=== PATIENT | female | born 1950 | race American Indian/Alaskan Native ===

== ENCOUNTER 2017-06-05 17:16 | Inpatient (IN) | payer BC, OTHER ==
[~2017-06-05] VITALS: Ht 154.9 cm; Wt 83.9 kg
[~2017-06-05 17:16] MED LIST: ALLEGRA ALLERGY60 MG PO; LEVOTHYROXINE75 MCG PO; NAPROXEN500 MG PO; NORCO 5-325 TA1 EACH PO; ZOLOFT25 MG PO
[2017-06-05] MEDS ORDERED: ASPIR 8181 MG PO (17:41)
--- NOTE | 2017-06-06 00:20 | NUR ---
06/06/17 0020 Ana M Masters 0004 PT ARRIVED ON 8L VIA MASK, RESP EVEN AND UNLABORED. REPORT FROM TRANSCRIPTER. 0015 PT OPENED EYES, REORIENTED TO PACU. 0019 PT REPORTING PAIN 3/10 AND NOT TOLERABLE AT THIS TIME.
--- NOTE | 2017-06-06 01:00 | NUR ---
PT ADMITTED TO ROOM 123 S/P LAP APPY-PERFORATED, APPENDICITIS OCCULT; CIRRHOSIS LIVER WHICH IS UNKNOWN TO PT. LABS ORDERED THIS AM INCLUDE HEPATITIS PANELS. PT CURRENTLY DOES NOT HAVE A KNOWN REASON FOR THE LIVER DISEASE. A BIOSPY WAS DONE. PT HAS 2 LAP SITES MID ABD AND UPPER MID ABD, BOTH WITH STERI STRIPS; JOSE RLQ WITH SANGUINEOUS DRAINAGE WELL DRESSING HAS SAME, REEL MAN STATES THAT IT HASN'T WORSENED POST SURGERY. PT IS ALERT AND ORIENTATED, STATES PRESSURE PAIN NEAR A 2. MONAE WITH YELLOW URINE.
--- NOTE | 2017-06-06 02:49 | NUR ---
PT CURRENTLY SLEEPING WITH SNORING. PULSE OX READING SATS AT 95 ON RA; AT 209 MED WITH 1 MG MORPHINE FOR A 3/10 PAIN-PRESSURE. PT WANTED TO HAVE A DRINK OF POP, DENIES NAUSEA. COUPLE DRINKS POP GIVEN. SAYS PERCOCET (OXYCODONE) GIVES HER WEIRD NIGHT MORRISON, SAYS SHE DOESN'T WANT TO TAKE THAT. WILL PASS INFORMATION ON TO RN DAYSHIFT. PT HAS HOARSE VOICE, SAYS FROM SURGERY. ENCOURAGED PT TO TAKE DEEP BREATHS WHICH SHE DID, BUT HAS BEEN MORE SHALLOW BREATHING. HR IN THE 50'S, RESP 16.
--- NOTE | 2017-06-06 03:11 | NUR ---
pt woke with vitals. asked about pain, she said what pain. note temp is 100.8; I/S done, says she feels ok, mostly sleeping. voice is less hoarse, able to hear pt talk louder. will med with tylenol if temp continues.
--- NOTE | 2017-06-06 04:16 | NUR ---
TEMP 100.4 MED WITH 650 MG TYLENOL. JOSE WITH 80 OUT AT THIS TIME, MONAE WITH 350, URINE WHICH IS ACTUALLY DARKER VS YELLOW URINE. PT DENIES PAIN, IS DRINKING LEMON MOD[place], EATING A CRACKER AND RED JELLO. NO NAUSEA. STAB WOUNDS UNCHANGED FROM ADMISSION IS THE JOSE DRESSING. NO NEW DRAINAGE PRESENT. IV CONTINUES, O2 SATS 92 ON RA AT THIS TIME.
--- NOTE | 2017-06-06 05:16 | NUR ---
PT WITH EYES CLOSED, RESP EVEN AND UNLABORED PULSEOX WITH SATS 92, HR 71.
--- NOTE | 2017-06-06 06:12 | NUR ---
PT COMPLAIN OF 5/10 ABD PAIN NEAR 0555 , ABD UNCHANGED FROM ADMISSION, JOSE WITH 60 CC LESS BLOODY FLUID, MONAE WITH DARK ANDRES URINE. MED WITH 2 MG MORPHINE, NOTED SATS DROPPED TO 89-90 ON RA, SO NOW ON 2 LITER O2. HYPOACTIVE BOWEL SOUNDS, PT SAID I ATE THAT JELLO AND MY BELLY HURT LITTLE MORE. AT THIS TIME PT STATES PAIN IS NOW A 2-3/10.
--- NOTE | 2017-06-06 06:32 | NUR ---
PT ADMITTED FOR S/P LAP APPY-PERFORATED. LAP SITES WNL; BIOSPY LIVER DONE WELL. NO HISTORY OF LIVER DISEASE TO PT KNOWLEDGE BUT HAS CIRRHOSIS OF LIVER PER DR CARABALLO. HEP LABS COMPLETED. MED FOR PAIN X 2 THIS SHIFT, WITH FIRST TIME 1 MG MORPHINE AND LAST DOSE AT 0559 2 MG FOR 5/10 PAIN, WHICH SHE REPORTS IS NOW A 2-3/10. PULSE OX WITH SATS ABOVE 90 WITH 2 LITERS NON CHRONIC O2, ONCE THE 2 MG MORPHINE GIVEN, SATS DROPPED. MONAE WITH DARKER ANDRES URINE. ATE CRACKERS, DRANK SOME [place] POP, ATE JELLO WELL THIS SHIFT WITH NO NAUSEA. JOSE WITH 140 TOTAL OUT WITH LESSENING OF REDDNESS.
--- NOTE | 2017-06-06 08:05 | NUR ---
Patient up to chair with 2 person assist. Patient sitting up eating jello and drinking tea. warm banket given. no other needs a this time. call button in reach.
--- NOTE | 2017-06-06 08:07 | NUR ---
PATIENT STATES THAT SHE JUST GOT PAIN MEDICATION AND SHE IS IN LITTLE PAIN NOW.
--- NOTE | 2017-06-06 09:29 | NUR ---
PT SITTING UP IN CHAIR. AWAKE AND ALERT. AM MEDS ADMINISTERED. MOTRIN GIVEN FOR PAIN 07/11. SCDS IN PLACE. DENTURES ON BEDSIDE TABLE. PT ATE JELLO AND DENIED NAUSEA. URINE IN MONAE IS ANDRES. ORAL INTAKE ENCOURAGED. RT IN TO CHECK PT. TAKEN OFF O2 SAT 92-94% ON RA. EDUCATED ON IS USE. DENIES OTHER NEEDS AT THIS TIME. CALL LIGHT IN REACH.
--- NOTE | 2017-06-06 10:07 | NUR ---
PATIENT IN CHAIR RESTING. LINENS CHANGED. FRESH ICE WATER. ELECTRICAL LOGGING OPERATOR DISCUSSED MADE A PLAN WITH PATIENT ABOUT HER PAIN LEVEL. PAIN LEVEL A 4 OUT OF 10. RN STATED THAT PATIENT HAS JUST RECEIVED A PAIN MEDICATION. IN ABOUT AN HOUR PATIENT AND ELECTRICAL LOGGING OPERATOR WILL BE GOING FOR A SHORT WALK. PATIENTS SISTER IN ROOM. CALL BUTTON IN REACH. NO OTHER NEEDS AT THIS TIME.
[2017-06-06] MEDS ORDERED: SERTRALINE HCL100 MG PO (10:53)
[2017-06-06] MEDS ORDERED: OMEGA 3 1,0001 EACH PO (10:56)
[2017-06-06] MEDS ORDERED: LEVOTHYROXINE100 MCG PO (10:57)
[2017-06-06] MEDS ORDERED: EPIN0.3P IM (10:58)
[2017-06-06] MEDS ORDERED: EPINEPHRIN0.3 MG/0.3 IM (10:59)
[2017-06-06] MEDS ORDERED: FLONASE ALLERG9.9 ML NAS (11:00)
--- NOTE | 2017-06-06 11:01 | NUR ---
MED REC COMPLETE WITH YELLOWHAWK REFILL HISTORY.
--- NOTE | 2017-06-06 11:01 | NUR ---
PT WALKED IN [place] WITH NEEDLE LOOM OPERATOR HELPER'S. TOLERATED WELL. RATES PAIN 4\10 AFTER WALKING.
--- NOTE | 2017-06-06 11:02 | NUR ---
PATIENT AMBULATED IN HALLWAY WITH ONE PERSON ASSIST. PATIENT STATED THAT SHE WAS FEELING SHAKEY, WEAK AND TENSE. PATIENT BACK TO BED. PATIENT STATES THAT HER PAIN IS A 4 OUT OF 10. ICE PACK GIVEN TO PATIENT. CALL LIGHT IN REACH. NO OTHER NEEDS AT THIS TIME.RN NOTIFIED.
--- NOTE | 2017-06-06 11:30 | NUR ---
TALKED TO DR CARABALLO REGARDING MONAE, UO, AND POTASSIUM. CHANGED ORDER FOR LABS TO TODAY. LEAVE MONAE FOR NOW AND BOLUS 1L LR.
--- NOTE | 2017-06-06 11:55 | NUR ---
PT IS SITTING UP IN BED. ATE SOUP AND TOLERATED WELL. BOLUS RUNNING. PT STATES "I JUST FEEL SLEEPY" HAS COOL CLOTH ON FOREHEAD AND ICE PACK ON ABDOMEN. STATES PAIN IS INCREASING BUT STILL TOLERABLE. WOULD LIKE TO REST. CALL LIGHT IN REACH. DENIES OTHER NEEDS AT THIS TIME.
--- NOTE | 2017-06-06 12:20 | NUR ---
PATIENT RESTING IN BED WITH EYES CLOSED. PATIENT STATS THAT HER PAIN IS AT A 4. PATIENT STATES THAT THE ICE PACK HELPED DECREASE HER PAIN. CALL BUTTON IN REACH. TALKED TO PATIENT ABOUT GOING FOR A WALK LATER THIS AFTER NOON. NO OTHER NEEDS AT THIS TIME.
--- NOTE | 2017-06-06 12:55 | NUR ---
PT IS RESTING IN BED WITH CLOTH ON FOREHEAD AND EYES CLOSED. APPEARS COMFORTABLE. BOLUS COMPLETE. URINE IN MONAE IS STILL CONCENTRATED/ANDRES IN APPEARANCE.
--- NOTE | 2017-06-06 14:26 | NUR ---
PT IS RESTING IN BED WITH COOL CLOTH OVER EYES. SAYS PAIN GETS UP TO 6/10 AND IS SHARP. DECLINED MORPHINE, BUT WOULD LIKE MOTRIN WHEN NEXT DOSE IS AVAILABLE. ICE PACK ON ABDOMEN REPLACED. URINE OUTPUT INCREASED, BUT STILL ANDRES IN APPEARANCE. ENCOURAGED TO CONTINUE ORAL INTAKE. WOULD LIKE TO NAP AND THEN TAKE A WALK AFTER DOSE OF MOTRIN. WATER CUP REFILLED. CALL LIGHT IN REACH.
--- NOTE | 2017-06-06 15:32 | NUR ---
ADMINSITERED SCHED MEDS AND PAIN MEDICATION FOR 7\10. PT STATES HER ABDOM IS RADIATING ACROSS. SOFT NON TENDER. MONAE AND JOSE DRAINING WNL. URINE SOCIAL SERVICES COORDINATOR AFTER BOLUS. Marck PEARSON STARTED.
--- NOTE | 2017-06-06 16:49 | NUR ---
THIS LOT WORKER ASSISTED THE PATIENT WITH AMBULATION. PATIENT AMBLUTATED HALF A HALLWAY. PATIENT STATED THAT SHE FELT A LITTLE WEAK, BUT PAIN LEVEL WAS AT ABOUT A 3 OUT OF 10. PATIENT IS NOW IN HER CHAIR RESTING. PAIN LEVEL STILL A 3 OUT OF 10. CALL BUTTON WITHIN REACH. NO OTHER NEEDS AT THIS TIME.
--- NOTE | 2017-06-06 17:28 | NUR ---
PT UP IN CHAIR. COMPLAINED OF PAIN IN LOWER ABD/PELVIS. CHECKED MONAE PLACEMENT. DRAINING WELL. JOSE DRAINING WNL. 2ND K RIDER INFUSING. ICE PACK ACROSS ABDOMEN. PT HAS INCREASED ORAL INTAKE. USES IS APPROPRIATELY. DENIES OTHER NEEDS AT THIS TIME.
--- NOTE | 2017-06-06 18:34 | NUR ---
DR CARABALLO IN TO CHECK ON PT RECHECKING PT BP. DOWN TO 90/48. PT DIZZY WITH AMBULATION. TENDER IN LOWER QUADRANT. DENIES NAUSEA, EATING SMALL AMT OF DINNER. MONAE DRAINING PHOTO OPTICS TECHNICIAN YELLOW THAN EARLIER TODAY, QS.
--- NOTE | 2017-06-06 18:49 | NUR ---
PT HAD POOR URINE OUTPUT THROUGHOUT DAY. RECEIVED 1L OF LR BOLUS. URINE HAS BEEN ANDRES - YELLOW. MONAE STILL IN PLACE. CONTINUE TO ENCOURAGE ORAL INTAKE. APPETITE HAS BEEN MINIMAL. DENIES NAUSEA. WALKED IN THE HALLWAY X2. DENIES SOB, BUT HAS WEAK SHAKEY GAIT. HAD HYPOTENSION THIS EVENING. DR CARABALLO AWARE. PAIN WELL CONTROLLED WITH 1MG MORPHINE X1 AND MOTRIN. JOSE WNL. LAP SITES CDI. WEANED TO ROOM AIR THIS AM.
--- NOTE | 2017-06-06 20:48 | EKG ---
[facility] [address] [facility] [place], [place] [address] Signed Sinus bradycardia Inferior infarct , age undetermined Abnormal ECG No previous ECGs available Confirmed by ARMIDA RAMESH MD ([id number]) on 06/06/2017 8:48:41 PM Electronically Signed By: ARMIDA RAMESH MD 06/06/17 2048 PATIENT NAME: KIARA BAEZ Electrocardiogram DATE OF : 54 PHYSICIAN: ARMIDA RAMESH MD REPORT #: [id number] REPORT IS CONFIDENTIAL AND NOT TO BE RELEASED WITHOUT AUTHORIZATION
--- NOTE | 2017-06-06 22:30 | NUR ---
PT APPEARED TO BE SLEEPING, EYES WERE CLOSED, RR EVEN AND UNLABORED. LIGHTS AND TV OFF IN ROOM. PT WOKE EASILY TO VOICE. ALERT AND ORIENTED X4. RATES PAIN AT 7/10, GAVE PERCOCET FOR PAIN. DENIES NAUSEA. JOSE DRAINING SMALL AMOUNT OF SEROSANGUENOUS DRAINAGE. MONAE DRAINING FREELY. GAVE FRESH ICE WATER. PT HAS NO FURTHER NEEDS. CALL LIGHT IN REACH.
--- NOTE | 2017-06-07 01:06 | NUR ---
PT APPEARS TO BE SLEEPING. RR WNL AND UNLABORED. LIGHTS AND TV OFF IN ROOM. PT HAS BEEN SLEEPING MAJORITY OF NIGHT. UNEVENTFUL SO FAR.
--- NOTE | 2017-06-07 03:42 | NUR ---
PT AWAKE WHEN ENTERING ROOM. COMPLAINED OF 8/10 PAIN, GAVE PERCOCET 7.5MG PO FOR PAIN. PT HAS NO FURTHER COMPLAINTS. REPORTS PERCOCET FROM BEGINNING OF SHIFT COVERED HER PAIN WELL. SHE HAS BEEN SLEEPING MAJORITY OF SHIFT.
--- NOTE | 2017-06-07 05:40 | NUR ---
PT HAD UNEVENTFUL NIGHT. SLEPT MAJORITY OF SHIFT. PAIN WELL CONTROLLED WITH PO PAIN MEDICATION. MONAE PUTTING OUT QS AMOUNTS OF DARK ANDRES URINE. PT ALERT AND ORIENTED. USES CALL LIGHT APPROPRIATLY. JOSE PUTTING OUT SEROSANGENOUS. NO NAUSEA. D5LR @ 85.
--- NOTE | 2017-06-07 07:31 | NUR ---
REPORT RECIEVED FROM RAYMOND MORRISSEY. PT SLEEPING UNTIL AWOKEN FOR REPORT. MONAE DRAINING DARK ANDRES URINE AGAIN THIS MORNING. IVF AT 85.
--- NOTE | 2017-06-07 07:45 | NUR ---
PATIENT UP TO CHAIR WITH ONE PERSON ASSIST. BED BATH ASSIST. HANDS AND FACE WASHED. ORAL CARE DONE. CATH CARE DONE. FRESH ICE WATER AND ICE WATER GIVEN. WARM BLANKET GIVEN. PATIENT RATES HER PAIN A 3 OUT OF 10. PATIENT SET UP FOR BREAKFAST. CALL BUTTON IN REACHN. LINENS CHANGED. RN IN ROOM TO PASS MEDS. NO OTHER NEEDS AT THIS TIME.
--- NOTE | 2017-06-07 08:08 | NUR ---
AM MEDS ADMINISTERED. ASIM SELBY AND ASIM ROCHA IN TO CHANGE LINENS AND DO BUZZ CARE. PT SITTING UP IN CHAIR WITH LEGS ELEVATED. EATING BREAKFAST. CALL LIGHT IN REACH.
--- NOTE | 2017-06-07 09:45 | NUR ---
PT APPEARS TO BE SLEEPING WITH CLOTH OVER EYES. AROUSES EASILY. SL PER RASHMI ORDER. ENCOURAGED TO CONTINUE ORAL INTAKE. CERTIFIED WELLNESS PROGRAM COORDINATOR AJ IN TO DO AM VITALS. PT STATES THEY GOT TOAST CAUGHT IN THROAT DURING BREAKFAST AND HAD DIFFICULTY COUGHING IT UP. LUNGS SOUND CLEAR. PT SAYS PAIN IS INCREASING AND WOULD LIKE SOMETHING. ICE PACK ON ABD. DENIES OTHER NEEDS AT THIS TIME.
--- NOTE | 2017-06-07 10:09 | NUR ---
PATIENT RESTING IN BED WITH WASHCLOTH OVER EYES AND TALKING ON THE TELEPHONE. DISCONTINUED MONAE. FRESH ICE WATER. FRESH ICE PACK. CALL LIGHT WITHIN REACH. NO OTHER NEEDS AT THIS TIME.
--- NOTE | 2017-06-07 10:57 | NUR ---
PT REPORTED INCREASING PAIN OF 5/10. GIVEN 1 TAB OF NORCO. HAS BEEN RESTING IN BED. ENCOURAGED ORAL INTAKE. PT EXPRESSED INTEREST IN GOING ON A WALK AGAIN AFTER LUNCH. PT GOT UP TO BATHROOM. WEAK GAIT. USED WALL AND SINK FOR SUPPORT WHEN WALKING. URINE WAS ALARM INSTALLATION TECHNICIAN IN COLOR. PT BACK TO BED, AND DENIES FURTHER NEEDS. ICE PACK ON ABD. CALL LIGHT IN REACH.
--- NOTE | 2017-06-07 12:26 | NUR ---
PT WAS RESTING. EASILY AROUSED. RATES PAIN 2/10 AND STATES IT IS TOLERABLE. SITTING UP IN BED EATING LUNCH. ORAL INTAKE IMPROVED.
--- NOTE | 2017-06-07 12:45 | NUR ---
PATIENT STATES THAT HER PAIN LEVEL IS A 2 OUT OF 10. THIS PURCHASING MANAGER AND ANOTHER PURCHASING MANAGER REPOSITIONED PATIENT STRAIGHT UP IN BED TO EAT HER MEAL. PATIENT STATES THAT SHE WAS ABLE TO USE THE RESTROOM. CALL LIGHT WIHIN REACH. NO OTHER NEEDS AT THIS TIME.
--- NOTE | 2017-06-07 13:20 | NUR ---
PATIENT RESTING IN BED. PATIENTS FAMILY VISITING. PATIENT STATES THAT SINCE USING THE RESTROOM THE PRESSURE IN HER ABDOMEN HAS GONE DOWN. CALL BUTTON WITHIN REACH. NO OTHER NEEDS AT THIS TIME.
--- NOTE | 2017-06-07 13:45 | NUR ---
PATIENT UP TO BATHROOM WITH ONE PERSON ASSIT. PATIENT AMBULATED FULL HALLWAY X1 WITH THIS SOLAR SYSTEM INSTALLER. PATIENT STATES THAT HER PAIN ISN'T BAD YESTERDAY. PATIENT STATES THAT HER EYES ARE WHAT IS REALLY BOTHERING HER RIGHT NOW AND SHE HAS EYE DROPS THAT HAVE BEEN PERSCRIBED FOR HER TO SHOW THE DOCTOR. THIS SOLAR SYSTEM INSTALLER GAVE THE EYE DROPS TO CHARGE NURSE KULWINDER. CALL BUTTON IN REACH. NO OTHER NEEDS AT THIS TIME.
--- NOTE | 2017-06-07 14:00 | NUR ---
PT SITTING IN BED, TRYING TO EAT AN ARRAY OF DIFFERENT FOOD AND FRUIT. PT ADMITTED THAT NOT TOO INTERESTED, BUT TRYING. VERY PLEASANT DEMEANOR, FAMILY IN RM VISITING. PT SAID FIRST NIGHT VERY DIFFICULT, LAST NIGHT SLEPT WELL, AND NAPPING ON AND OFF TODAY. THANKED ME FOR COMING BY, EXTENDED A BLESSING. WILL FOLLOW NEEDED
--- NOTE | 2017-06-07 14:31 | NUR ---
PT SITTING UP IN CHAIR WITH LEGS ELEVATED. CHARGE NURSE IN FOR AFTERNOON ROUNDS. PT REPORTS DRY EYES AND LIKES TO KEEP COOL CLOTH OVER EYES. REPORTS PAIN IS MINIMAL AND PRESSURE HAS BEEN RELIEVED SINCE MONAE REMOVAL AND ACTIVITY. TOLERATED LUNCH WELL. HAS NO OTHER NEEDS AT THIS TIME. CALL LIGHT IN REACH.
[2017-06-07] MEDS ORDERED: SIMBRINZA 1%-0.28 ML OU (15:13)
--- NOTE | 2017-06-07 17:23 | NUR ---
PATIENT RESTING IN CHAIR. PATIENT STATES PAIN LEVEL IS A 1 OUT OF 10. PATIENT STATES THAT HER ICE WATER WAS JUST FILLED, SHE WAS ALREADY HELPED TO THE RESTROOM AND HER ICE BAG WAS JUST FILLED WELL. PATIENT STATES SHE FELL ASLEEP AND IT HELPED A LOT. CALL LIGHT WITHIN REACH. NO OTHER NEEDS AT THIS TIME.
--- NOTE | 2017-06-07 18:09 | NUR ---
PT SITTING UP IN CHAIR EATING DINNER. PAIN WELL CONTROLLED. UO QS.
--- NOTE | 2017-06-07 18:40 | NUR ---
PT HAD GOOD DAY. UP IN CHAIR AND WALKED SEVERTAL TIMES. MONAE REMOVED, UO QS AND DRAFTER LANDSCAPE COLOR. PAIN WELL CONTROLLED WITH MINIMAL PERCO. PLAN TO DC TOMORROW. JOSE DRAINING SCANT AMT.
--- NOTE | 2017-06-07 20:10 | NUR ---
In bed, coop with procedures. no c/o pain
--- NOTE | 2017-06-07 21:00 | NUR ---
HELPED PT GET INTO BED. TOOK OUT TEETH. FRESH ICE WATER
--- NOTE | 2017-06-07 22:15 | NUR ---
PT LAYING IN BED, AWAKE, WATCHING TV WHEN ENTERING ROOM. ALERT AND ORIENTED X4. PT RATES PAIN AT 3/10, GAVE PERCOCET 7.5MG FOR PAIN. GAVE FRESH ICE PACK AND FRESH ICE WATER. PT UP TO BATHROOM TO VOID, TOLERATING AMBULATING WELL. PT HAS NO FURTHER NEEDS AT THIS TIME. CALL LIGHT IN REACH.
--- NOTE | 2017-06-08 00:11 | NUR ---
PT APPEARS TO BE SLEEPING, RR WNL AND UNLABORED. LIGHTS AND TV OFF IN ROOM.
--- NOTE | 2017-06-08 02:07 | NUR ---
PT IS RESTING IN BED. CALL LIGHT IN REACH. WILL CHECK BACK ON LATER.
--- NOTE | 2017-06-08 07:18 | NUR ---
MARSHAL REPORT RECEIVED FROM YUNI. ASSUMING PATIENT AT THIS TIME WITH STUDENT NURSE. PATIENT AWAKE, ALERT AND ORIENTED. PATIENT WAS ASSISTED TO BATHROOM, THEN BACK TO BED. PATIENT REPORTS 2/10 ABD PAIN. NO NEED FOR PAIN MED AT THIS TIME. CALL LIGHT IN REACH.
--- NOTE | 2017-06-08 07:59 | NUR ---
Pt up in recliner eating breakfast. Complains of 7/10 headache. Gave pt warm washcloth for eyes, ice water and ice pack. Gave PRN ibuprofen for JADE. Call light within reach. Will continue to monitor.
--- NOTE | 2017-06-08 09:52 | NUR ---
IN TO ROOM WITH STUDENT NURSE TO ASSESS PATIENT. PATIENT REPORTED RELIEF OF HER HEADACHE. SHIFT ASSESSMENT COMPLETED. ACTIVE BOWEL TONES IN ALL 4 QUADRANTS. LUNGS CLEAR BUT FINE CRACKLE AUSCULTATED IN THE BASES. IV SITE PATENT. NO EDEMA NOTED. ALL 3 LAP SITES WNL AND JOSE DRAIN IN PLACE WITH MINIMAL SEROSANGUINOUS FLUID. PATIENT RATED HER ABD PAIN 2/10. PATIENT RESTING IN THE CHAIR AT THIS TIME.
--- NOTE | 2017-06-08 10:33 | NUR ---
1000 VS ACQUIRED. BP LOW. PT RESTING IN CHAIR. C/O OF ABDOMINAL TENDERNESS. JOSE DRAIN WITH SMALL AMOUNT SEROSANGUINOUS DRAINAGE. BOWEL TONES ACTIVE IN ALL 4 QUADRANTS. ABD SOFT ON PALPATION. INFORMED PRIMARY NURSE OF LOW BP. CALL LIGHT IN REACH.
--- NOTE | 2017-06-08 11:26 | NUR ---
TOILETING OFFERED. PT AMBULATED WITH WALKER TO BATHROOM WITH STANDBY ASSIST. PT INDEPENDENT WITH TOILETING. AMBULATED BACK TO CHAIR. FAMILY NOW AT BEDSIDE AND PT IS EATING LUNCH. CALL LIGHT IN REACH.
--- NOTE | 2017-06-08 11:37 | HP ---
[facility] [address] [facility] [place], [place] [address] Signed ADMISSION DATE: 06/05/2017 TIME: 10:00 p.m. REASON FOR ADMISSION: Acute appendicitis with peritonitis. HISTORY OF PRESENT ILLNESS: This 66-year-old moderately obese Hungarian woman presented to the emergency room with generalized lower abdominal pain. She has had pain in the lower abdomen since Monday (today is Monday). She was evaluated by Dr. Dee and found to have tenderness of the lower abdomen. Her initial evaluation was by Dr. Britton. The CT scan was obtained, which confirms a finding of acute appendicitis. There were some nodular changes of the edge of the liver, which was suggestive of cirrhosis. However, the patient has no personal history of risk factors for liver disease in the slightest. She does have a son who is quite alcoholic and has liver failure. She has never had hepatitis. She does not drink alcohol, although she did have some drinking in her 20s. PAST MEDICAL HISTORY: Does include cholecystectomy by open technique a number of years ago. She denies any ongoing medical problems. LABORATORY STUDIES: Showed an elevated white count of 13.1, hematocrit of 42.6, and platelet count of a 139,000. Her Chem profile showed a potassium of 3.0. Liver enzymes were normal. Urinalysis normal. The CT scan that was performed showed the appendix to be dilated, inflamed and hyperemic. The appendix was approximately 1.2 cm in diameter with no extraluminal gas or organized fluid collection. REVIEW OF SYSTEMS: She denies any shortness of breath or chest pain. She does feel somewhat thirsty. She denies cough. Denies dysuria or hematuria. Denies blood per rectum or hematemesis. PHYSICAL EXAMINATION: GENERAL: A pleasant Hungarian woman who does not look systemically toxic at this moment. HEENT: Mucous membranes are dry. Trachea is midline. CHEST: Shows normal respiratory excursion without tachypnea. HEART: Regular. ABDOMEN: Nondistended. There is no ascites. She has marked tenderness consistent with peritonitis most dominantly in the right lower quadrant. The right subcostal incision Electronically Signed By: CHAPIS CARABALLO MD 06/08/17 1137 PATIENT NAME: KIARA BAEZ HISTORY AND PHYSICAL DATE OF : 54 REPORT #: [id number] PHYSICIAN: CHAPIS CARABALLO MD PCP: BRIANA SAHA REPORT IS CONFIDENTIAL AND NOT TO BE RELEASED WITHOUT AUTHORIZATION [facility] [address] [place], [place] [address] Signed is well healed. There is no sign of hernia. I am unable to palpate the liver for its texture given her body habitus and tenderness. EXTREMITIES: No clubbing, cyanosis, or edema. ASSESSMENT: She has acute abdomen, likely related to appendicitis. She needs additional fluid resuscitation and I would recommend the operation tonight. Given the extent of tenderness and so forth. Antibiotic clindamycin and Flagyl be initiated as she is penicillin allergic with hives. We will additionally initiate Pepcid and get a 12-lead EKG and proceed to operation tonight to include laparoscopic appendectomy, possible open procedure depending on findings. We will be noting the issue related to her liver as to whether there are any cirrhotic changes. She has no special risks factors for that, however. The risks of bleeding, infection, need for open procedure, failure of diagnosis, missed diagnosis, need for other indicated procedures were reviewed in detail. She understands and wished to proceed. MD FAUSTO Tsang/LYNN /[id number] cc: MD Epi Rowell, GABBIE Okeefe Copies: RANDAL DEE MD, MICHAEL MD [facility] Electronically Signed By: CHAPIS CARABALLO MD 06/08/17 1137 PATIENT NAME: KIARA BAEZ HISTORY AND PHYSICAL DATE OF : 54 REPORT #: [id number] PHYSICIAN: CHAPIS CARABALLO MD PCP: BRIANA SAHA REPORT IS CONFIDENTIAL AND NOT TO BE RELEASED WITHOUT AUTHORIZATION [facility] [address] [place], [place] [address] Signed BRIANA SAHA ~ Electronically Signed By: CHAPIS CARABALLO MD 06/08/17 1137 PATIENT NAME: KIARA BAEZ HISTORY AND PHYSICAL DATE OF : 54 REPORT #: [id number] PHYSICIAN: CHAPIS CARABALLO MD PCP: BRIANA SAHA REPORT IS CONFIDENTIAL AND NOT TO BE RELEASED WITHOUT AUTHORIZATION
--- NOTE | 2017-06-08 11:37 | OR ---
[facility] [address] [place], [place] [address] Signed DATE OF OPERATION: SURGEON: Chapis Caraballo MD PREOPERATIVE DIAGNOSES: 1. Acute appendicitis. 2. Nodular changes of liver on CT scan. POSTOPERATIVE DIAGNOSES: 1. Acute perforated appendicitis (severe). 2. Cirrhosis of liver (occult). 3. Small cyst of right lobe of liver. PROCEDURE: 1. Laparoscopy with extensive lysis of adhesions of omentum. 2. Laparoscopic appendectomy, prolonged, complicated, and difficult for perforated appendicitis. 3. Laparoscopic liver biopsy. ANESTHESIA: General endotracheal; Jessica Seth CRNA, and local 10 mL of 0.25% Marcaine. INDICATION: This 66-year-old woman has had lower abdominal pain since Monday (today is Monday). She presented to the emergency room where she was evaluated by Dr. Britton and secondarily Dr. Randal Dee. She is a patient of tiffanie Thompson. She was found on evaluation to have marked tenderness in the lower abdomen and a CT scan was performed confirming probable appendicitis. Incidentally noted were nodular changes of the liver suggestive of cirrhosis. There is no evidence of ascites. She has no alcohol abuse history or known exposure to hepatitis C. She has undergone hysterectomy through a low midline incision in the past as well as open cholecystectomy through a right subcostal incision. Given the extent of her significant peritonitis and findings clinically and on CT scan, I have recommended operation this evening. The risks of operation include, but are not limited to, bleeding, infection, need for other indicated procedures. A laparoscopic approach is preferred though an open procedure may be necessary. She understands all of this. FINDINGS: There were numerous omental adhesions in the upper abdomen, no doubt related to her prior right subcostal open cholecystectomy. Lysis of adhesions was undertaken so as to allow optimal placement of trocars. The liver was indeed and found to have cirrhotic Electronically Signed By: CHAPIS CARABALLO MD 06/08/17 1137 PATIENT NAME: KIARA BAEZ OPERATIVE REPORT DATE OF : 54 REPORT #: [id number] PHYSICIAN: CHAPIS CARABALLO MD PCP: JAZMÍN SAHA REPORT IS CONFIDENTIAL AND NOT TO BE RELEASED WITHOUT AUTHORIZATION [facility] [address] [place], [place] [address] Signed changes including macronodular changes. It was not as advanced as sometimes seen, however. There was surgical absence of the gallbladder. A small cyst was noted in the right lobe of the liver. As regard to the appendix, it was markedly inflamed. Perforation of the proximal 3rd of the appendix was noted. There was no sign of abscess formation, however. The terminal ileum was secondarily inflamed. Appendectomy was prolonged, complicated, and difficult, but was accomplished safely. A drain was placed in the area of the cecum at the conclusion of the procedure. The operation was prolonged, complicated, and difficult on the basis of adhesions. Extent of inflammation of the appendix and so forth, but was accomplished safely. Additionally performed was a core biopsy of the right lobe of the liver to assess the degree of cirrhotic change. DESCRIPTION OF PROCEDURE: The patient was brought to the operating room, given a general endotracheal anesthetic. Preoperative antibiotic clindamycin and Flagyl had been given. This was based on her allergy profile. After satisfactory general endotracheal anesthesia, a Guzman catheter was placed. The abdomen was clipped and prepared with a chlorhexidine solution and draped sterilely. A dense right subcostal incision was noted as well as a low midline incision. Palpation of the abdomen revealed a firm mass in the right lower quadrant. A supraumbilical incision was made based on her pattern of scarring and using an open Sandy cannula technique, the abdomen was entered and pneumoperitoneum was achieved to a level of 14 mmHg with carbon dioxide gas. Intraabdominal inspection showed no sign of ascites. The liver was obscured from view initially due to a large drape of omental adhesions. Examination of the right lower abdomen showed marked inflammatory changes surrounding soft tissue and cecum, but the appendix was not at that point visible. A right lower quadrant incision was made allowing for passage of a 5 mm trocar. This allowed for takedown of adhesions of the upper abdomen to optimally placed an additional trocar in the epigastric area. Sharp and blunt dissection was undertaken. Clips applied to the omental vessels as necessary ultimately freeing the omentum very well. The left lateral segment of liver as well as the right lobe could be well identified and showed cirrhotic changes. Cirrhosis was not as advanced as in many cases, however. There was surgical absence of the gallbladder. Once adhesions were taken down adequately, a 12 mm epigastric port was placed under Electronically Signed By: CHAPIS CARABALLO MD 06/08/17 1137 PATIENT NAME: KIARA BAEZ OPERATIVE REPORT DATE OF : 54 REPORT #: [id number] PHYSICIAN: CHAPIS CARABALLO MD PCP: JAZMÍN SAHA REPORT IS CONFIDENTIAL AND NOT TO BE RELEASED WITHOUT AUTHORIZATION [address] [address] Signed direct visualization of the camera placed to that side. Two hand manipulation with laparoscopic instruments allowed for identification more fully of the cecum itself. The appendix was then identified and was markedly inflamed and dilated and very firm. It was densely adherent inferiorly and laterally. The tip was plastered against the pelvic sidewall and was bluntly taken down. It appeared that the bulk of the mesentery of the appendix was tethered posteriorly. The table was rotated to a bit of [id number] position and with all due care, a window was created between the appendix and the cecum. Using an Endo-KENDRA stapling device with a vascular load, the appendix was transected and flushed with the cecum. Some electrocautery was used to better define the mesentery itself and once well identified, an Endo-KENDRA stapling device was applied across the mesentery. This necessitated replacement of a laparoscope to the umbilical area and the stapler to the epigastric port. This allowed for good transection of the mesentery with excellent hemostasis. Given the findings of the appendix, which included perforated area about a [address] from the staple line from the perforated appendicitis, the appendix was placed in an endobag and extracted through the infraumbilical port site, it was opened on the back table by the circulating nurse. Irrigation was undertaken at the retrocecal area. There was no sign of untoward bleeding and excess irrigation fluid was suctioned free. Through the right-sided lower 5 mm trocar site, a 5 mm King drain was placed manipulated into position of the cecum and secured to the skin with nylon suture. Attention was now turned towards the liver itself. The biopsy was deemed most advisable to better characterize her cirrhosis and its stage. Camera was placed to the infraumbilical area and an area of the right lobe was identified as appropriate for biopsy. Percutaneous passage of a biopsy gun device with alignment to the right lobe of the liver allowed for a core biopsy of the liver. As usual, bleeding from the puncture site was secured with electrocautery without much problem. Excess irrigation fluid was suctioned free. The liver biopsy core was quite optimal. Reinspection of the lower abdomen showed no sign of untoward bleeding or other problems. The trocars were removed under direct visualization showing no sign of bleeding. The infraumbilical fascial incision was reapproximated with interrupted 0 Vicryl suture. All wounds were copiously irrigated with saline solution. Skin closed with interrupted 3-0 Vicryl. Special care was taken to provide optimal closure of the fascial layer in the supraumbilical trocar site. The skin was closed with interrupted Electronically Signed By: CHAPIS CARABALLO MD 06/08/17 1137 PATIENT NAME: KIARA BAEZ OPERATIVE REPORT DATE OF : 54 REPORT #: [id number] PHYSICIAN: CHAPIS CARABALLO MD PCP: JAZMÍN SAHA REPORT IS CONFIDENTIAL AND NOT TO BE RELEASED WITHOUT AUTHORIZATION [address] [address] Signed 3-0 Vicryl. The patient was ultimately extubated and transferred to recovery room in good condition having suffered no complications. The operation was prolonged, complicated, and difficult on the basis of her adhesions and so forth. It was accomplished safely, however. Chapis Caraballo MD JM/MODL /[id number] cc: MD Jazmín Rowell PA Michael Frommlet, MD Copies: RANDAL DEE MD,ALONDRA MOFFETT MD ~ Electronically Signed By: CHAPIS CARABALLO MD 06/08/17 1137 PATIENT NAME: KIARA BAEZ OPERATIVE REPORT DATE OF : 54 REPORT #: [id number] PHYSICIAN: CHAPIS CARABALLO MD PCP: JAZMÍN SAHA REPORT IS CONFIDENTIAL AND NOT TO BE RELEASED WITHOUT AUTHORIZATION
--- NOTE | 2017-06-08 11:56 | NUR ---
PATIENT RESTING IN THE CHAIR. DENIES PAIN AND NAUSEA. EATING LUNCH AT THIS TIME.CALL LIGHT IN REACH. WILL CONTINUE TO MONITOR.
--- NOTE | 2017-06-08 12:06 | NUR ---
ASSESSED PTS SURGICAL INCISIONS. DRESSINGS ARE INTACT WITH NO NEW DRAINAGE. PT RESTING COMFORTABLY IN CHAIR. CALL LIGHT IN REACH. DENIES FURTHER NEEDS.
[2017-06-08] MEDS ORDERED: METRONIDAZOLE250 MG PO (13:54)
[2017-06-08] MEDS ORDERED: CIPROFLOXACIN500 MG PO (13:54)
[2017-06-08] MEDS ORDERED: IBUPROFEN600 MG PO (13:56)
[2017-06-08] MEDS ORDERED: OXYCODON-ACETA1 EAC2 PO (13:57)
[2017-06-08] MEDS ORDERED: MAPAP325 MG PO (13:57)
--- NOTE | 2017-06-08 13:59 | NUR ---
PT SITTING IN CHAIR, ON PHONE. I HANDED HER THE NEWSPAPER, SHE THANKED ME WHILE TALKING ON PHONE. WILL CONTINUE TO FOLLOW
--- NOTE | 2017-06-08 14:19 | NUR ---
PT AMBULATED TO BATHROOM WITH WALKER WITH STANDBY ASSIST. TOILETED INDEPENDTENLY. MD AT BEDSIDE TO DISCUSS PLAN OF CARE. ASSISTED PT INTO BED. MD REMOVED JOSE DRAIN. PT REQUESTED TO TAKE A SHOWER. OKAYED SHOWER. COVERED DRAIN WOUND AND ASSISTED PATIENT INTO SHOWER. NO COMPLAINT OF PAIN OR DISCOMFORT.
--- NOTE | 2017-06-13 09:20 | DS ---
[facility] [address] [facility] [place], [place] [address] Signed ADMISSION DATE: 06/05/2017 DISCHARGE DATE: 06/08/2017 REASON FOR ADMISSION: This 66-year-old, moderately obese, Omani woman presented to the emergency room with generalized lower abdominal pain. She has had pain since Monday (day of admission, Monday). She was evaluated by Dr. Dee and found to have tenderness in the lower abdomen. Her initial evaluation was by Dr. Britton. A CT scan was obtained, which confirmed findings of acute appendicitis. There were nodular changes of the edge of the liver, which was suggestive of possible cirrhotic change of the liver. The patient has no personal history of risk factors for liver disease including no history of alcohol abuse. She was admitted for further evaluation and care. PAST MEDICAL HISTORY: Included cholecystectomy by open technique in the distant past as well as 3 C-sections. PERTINENT PHYSICAL EXAMINATION: GENERAL: Pleasant [place] woman, who did not look systemically toxic. HEENT: Mucous membranes are dry. NECK: Trachea midline. CHEST: Clear. HEART: Regular without murmur. ABDOMEN: Nondistended. There is no ascites. There is marked tenderness consistent with peritonitis, most dominantly in the right lower quadrant. The right subcostal incision is well healed. There is a low midline incision extending from the umbilicus to the symphysis pubis. The liver is unable to be palpated, but there is no tenderness of the liver otherwise. LABORATORY STUDIES: Showed a white count of 13.1, hematocrit 42.6, platelets 139,000. Chem profile, potassium is 3.9. Liver enzymes normal. HOSPITAL COURSE: Given the acuity of her peritonitis, she was taken to operation, which was about midnight or so by the end of it. She was found to have markedly inflamed appendix with perforation, but no sign of well-formed abscess. A laparoscopic appendectomy was able to be performed. Additionally, she was in fact found to have cirrhosis of the liver. A liver biopsy was also performed. The level of cirrhosis was not as extensive as it could be, considered mild to moderate overall. A drain was placed at the side of the cecum. Electronically Signed By: CHAPIS CARAABLLO MD 06/13/17 0920 PATIENT NAME: KIARA BAEZ DISCHARGE SUMMARY DATE OF : 54 REPORT #: [id number] PHYSICIAN: CHAPIS CARABALLO MD PCP: BRIANA SAHA REPORT IS CONFIDENTIAL AND NOT TO BE RELEASED WITHOUT AUTHORIZATION [facility] [address] [place] [id number] Signed Postoperatively, she did have some relatively low blood pressure and somewhat marginal urine output, for which additional fluids were administered. She had no sign of other problem and no development of ascites grossly. The drain was in place, showed only serosanguineous fluid. By day of discharge, she was ambulating well, tolerating a regular diet and oral analgesics and drain has been removed. She was transitioned from broad-spectrum IV antibiotic to Flagyl and Cipro orally administered and will have 5 days additionally at time of discharge with that. DISCHARGE MEDICATIONS: Will include, 1. Cipro 500 mg p.o. b.i.d., #10. 2. Flagyl 250 mg t.i.d., #15. 3. Motrin 600 mg p.o. q.6 hours p.r.n. pain. 4. Percocet 7.5/325 mg, 1 to 2 p.o. q.4 hours p.r.n. pain, #10. 5. Tylenol 650 mg p.o. q.6 hours as needed for pain, #30. She will resume her usual medications which include, 1. Vanesa 60 mg daily. 2. Aspirin 81 mg daily. 3. Sertraline hydrochloride 100 mg p.o. daily. 4. Carmine fatty acid supplement. 5. Synthroid 100 mcg p.o. daily. 6. Fluticasone Allergy Relief spray 2 sprays nasally as needed for allergies. 7. Simbrinza 1%/0.2% eyedrops 1 drop each eye b.i.d. FOLLOWUP PLANS: She is to return to see me in approximately a month or so. The drain that was placed at the time of operation has been removed. She is recommended to walk on a daily basis, but to avoid lifting more than 20 pounds for the next 2 weeks at least. I have recommended she return to work if she desires in 2 weeks (works at the [employer] on the [facility], [place]). DISCHARGE DIAGNOSES: 1. Severe perforated appendicitis without abscess, status post laparoscopic appendectomy (complicated, difficult). 2. Occult cirrhosis of the liver, status post biopsy of liver. Hepatitis panel pending. Pathology pending. 3. History of cholecystectomy by open technique, distant past. 4. x3. 5. Hypothyroidism. Electronically Signed By: CHAPIS CARABALLO MD 06/13/17 0920 PATIENT NAME: KIARA BAEZ DISCHARGE SUMMARY DATE OF : 54 REPORT #: [id number] PHYSICIAN: CHAPIS CARABALLO MD PCP: BRIANA SAHA REPORT IS CONFIDENTIAL AND NOT TO BE RELEASED WITHOUT AUTHORIZATION [facility] [address] [place], [place] [address] Signed MD FAUSTO Tsang/LYNN /[id number] cc: MD Jonatan Peck MD Kristin H Bourret, PA Copies: VELIA HICKMAN MICHAEL MD WENDLER, SHELDON MD BOURRET, KRISTIN H PA ~ Electronically Signed By: CHAPIS CARABALLO MD 06/13/17 0920 PATIENT NAME: KIARA BAEZ DISCHARGE SUMMARY DATE OF : 54 REPORT #: [id number] PHYSICIAN: CHAPIS CARABALLO MD PCP: BRIANA SAHA REPORT IS CONFIDENTIAL AND NOT TO BE RELEASED WITHOUT AUTHORIZATION
== END 2017-06-08 15:56 | disposition home or self-care (01) | DRG 340 ==
LOC: ED 17:16 → MS 22:03
PROVIDERS: ADMIT Surgery
PROC: 0FB14ZX Excision of Right Lobe Liver, Percutaneous Endoscopic Approach, Diagnostic (ICD-10-PCS; principal; 2017-06-05 22:44)
PROC: 0DTJ4ZZ Resection of Appendix, Percutaneous Endoscopic Approach (ICD-10-PCS; principal; 2017-06-05 22:44)
DX: K35.3 Acute appendicitis with localized peritonitis (principal); K76.89 Other specified diseases of liver; K74.60 Unspecified cirrhosis of liver; K66.0 Peritoneal adhesions (postprocedural) (postinfection); Z90.710 Acquired absence of both cervix and uterus
CPT/HCPCS: 00840; 36415; 74177; 80048; 80053; 81001; 83690; 85025; 86704; 86706; 86709; 86803; 87340; 93005; 93010; 94762; 96374; 96375; 99285; J0330; J1644; J1885; J2270; J2405; J2704; J3010; J3480; J7030; J7050; J7120; Q9967

== ENCOUNTER 2018-08-14 16:16 | Emergency (ER) | payer BC, OTHER ==
[~2018-08-14] VITALS: Ht 154.9 cm; Wt 83.9 kg
--- OUTSIDE RECORDS SUMMARY | ~2018-08-14 | XMS | Clinical Summary ---
Demographics + + + | Address | [address] | | | [place] [address] | + + + | Home Phone | | + + + | Preferred Language | Unknown | + + + | Marital Status | Single | + + + | Sabianism Affiliation | Unknown | + + + | Race | Unknown | + + + | Ethnic Group | Unknown | + + + Author + + + | Author | [facility] | | | and [place] | + + + | Organization | [facility] | | | and [place] | + + + | Address | Unknown | + + + | Phone | Unavailable | + + + Support + + +---------+ + | Name | Relationship | Address | Phone | + + +---------+ + | Gregorio Nava ECON | Unknown | | + + +---------+ + Care Team Providers + +------+ + | Care Gravure Press Operator Name | Role | Phone | + +------+ + PP | Unavailable | + +------+ + Allergies + + + +--------+ + | Active Allergy | Reactions | Severity | Noted | Comments | | | | | Date | | + + + +--------+ + | Codeine Sulfate | | | | | + + + +--------+ + | Propoxyphene | | | | | + + + +--------+ + | Sulfa Antibiotics | | | | | + + + +--------+ + | Tobramycin Sulfate | | | | | + + + +--------+ + Medications + + + +---------+------+------+-------+ | Medication | Sig | Dispensed | Refills | Star | End | Statu | | | | | | t | Date | s | | | | | | Date | | | + + + +---------+------+------+-------+ | fluticasone | 2 sprays in each | | 0 | 09/1 | | Activ | | (FLONASE) 50 | nostril daily | | | 3/20 | | e | | mcg/nasal spray | | | | 12 | | | + + + +---------+------+------+-------+ | fexofenadine | Take 180 mg by mouth | | 0 | 09/1 | | Activ | | (ASHLEY ALLERGY) | Daily as needed. | | | 3/20 | | e | | 180 mg tablet | | | | 12 | | | + + + +---------+------+------+-------+ | omeprazole | Take 20 mg by mouth | | 0 | 09/1 | | Activ | | (PRILOSEC) 20 mg | 2 times daily. | | | 3/20 | | e | | TBEC | | | | 12 | | | + + + +---------+------+------+-------+ | sertraline | Take 100 mg by mouth | | 0 | 09/1 | | Activ | | (ZOLOFT) 100 mg | Daily. | | | 3/20 | | e | | tablet | | | | 12 | | | + + + +---------+------+------+-------+ | atorvaSTATin | Take 40 mg by mouth | | 0 | 09/1 | | Activ | | (LIPITOR) 40 mg | Daily. | | | 3/20 | | e | | tablet | | | | 12 | | | + + + +---------+------+------+-------+ | multivitamin | 1 tablet by mouth | | 0 | 09/1 | | Activ | | (THERAGRAN) per | daily | | | 3/20 | | e | | tablet | | | | 12 | | | + + + +---------+------+------+-------+ | [place]-3 Fatty | Take 1,000 mg by | | 0 | 09/1 | | Activ | | Acids (FISH OIL | mouth 3 times daily. | | | 3/20 | | e | | CONCENTRATE) 1000 MG | | | | 12 | | | | CAPS | | | | | | | + + + +---------+------+------+-------+ | sodium chloride | 1 spray in each | | 0 | 09/1 | | Activ | | (OCEAN) 0.65 % nasal | nostril twice daily | | | 3/20 | | e | | spray | | | | 12 | | | + + + +---------+------+------+-------+ | calcium-vitamin D | Take by mouth 2 | | 0 | 09/1 | | Activ | | 600-400 MG-UNIT TABS | times daily. | | | 3/20 | | e | | | | | | 12 | | | + + + +---------+------+------+-------+ | ibuprofen | Take 800 mg by mouth | | 0 | 09/1 | | Activ | | (ADVIL,MOTRIN) 800 | 3 times daily. | | | 320 | | e | | MG tablet | | | | 12 | | | + + + +---------+------+------+-------+ | FOLIC ACID PO | TABS 1 tablet by | | 0 | 09/1 | | Activ | | | mouth daily | | | 3/20 | | e | | | | | | 12 | | | + + + +---------+------+------+-------+ | | TABS 1 tablet by | | 0 | 09/1 | | Activ | | Methylsulfonylmethan | mouth daily | | | 3/20 | | e | | e (MSM PO) | | | | 12 | | | + + + +---------+------+------+-------+ Active Problems + + + | Problem | Noted Date | + + + | OBSTRUCTIVE SLEEP APNEA | 02/28/2011 | + + + | CHRONIC RHINITIS | 02/28/2011 | + + + | HYPERCHOLESTEROLEMIA | 02/28/2011 | + + + | RESTLESS LEG SYNDROME | 02/28/2011 | + + + | DEPRESSION, CHRONIC, HX OF | 02/28/2011 | + + + Social History + +-------+ +--------+------+ | Tobacco Use | Types | Packs/Day | Years | Date | | | | | Used | | + +-------+ +--------+------+ | Never Assessed | | | | | + +-------+ +--------+------+ + + + | Sex Assigned at | Date Recorded | | | | + + + | Not on file | | + + + + + + + | Job Start Date | Occupation | Industry | + + + + | Not on file | Not on file | Not on file | + + + + + + + + | Travel History | Travel Start | Travel End | + + + + + + | No recent travel history available. | + + Last Filed Vital Signs + + + + | Vital Sign | Reading | Time Taken | + + + + | Blood Pressure | 116/72 | 06/07/2011 0000 PST | + + + + | Pulse | - | - | + + + + | Temperature | - | - | + + + + | Respiratory Rate | - | - | + + + + | Oxygen Saturation | - | - | + + + + | Inhaled Oxygen | - | - | | Concentration | | | + + + + | Weight | 76.3 kg (168 lb 3.2 | 06/07/2011 0000 PST | | | oz) | | + + + + | Height | 163.8 cm (5' 4.5") | 02/28/2011 0000 PST | + + + + | Body Mass Index | 28.43 | 02/28/2011 0000 PST | + + + + Plan of Treatment + + + + + | Health Maintenance | Due Date | Last Done | Comments | + + + + + | Vaccine: | | | | | Dtap/Tdap/Td (1 - | 2 | | | | Tdap) | | | | + + + + + | Vaccine: Zoster (1 | | | | | of 2) | 3 | | | + + + + + | Vaccine: | | | | | Pneumococcal 65+ | 8 | | | | Low/Medium Risk (1 | | | | | of 2 - PCV13) | | | | + + + + + | Vaccine: Influenza | | | | | (Season Ended) | 9 | | | + + + + + Results Not on filefrom Last 3 Months
--- OUTSIDE RECORDS SUMMARY | ~2018-08-14 | XMS | Clinical Summary ---
Demographics + + + | Address | [address] | | | [place] [address] | + + + | Home Phone | | + + + | Preferred Language | Unknown | + + + | Marital Status | Single | + + + | Oriental Orthodox Affiliation | Unknown | + + + | Race | Unknown | + + + | Ethnic Group | Unknown | + + + Author + + + | Author | [facility] | | | and [place] | + + + | Organization | [facility] | | | and [place] | [...] Team Providers + +------+ + | Care Remelt Sugar Boiler Name | Role | Phone | + [...] | | + + + +---------+------+------+-------+ | [place]-3 Fatty | Take 1,000 mg by | [...]
[~2018-08-14 16:16] MED LIST changes: +ASPIR 8181 MG PO; +CIPROFLOXACIN500 MG PO; +EPIN0.3P IM; +EPINEPHRIN0.3 MG/0.3 IM; +FLONASE ALLERG9.9 ML NAS; +IBUPROFEN600 MG PO; +LEVOTHYROXINE100 MCG PO; +MAPAP325 MG PO; +METRONIDAZOLE250 MG PO; +OMEGA 3 1,0001 EACH PO; +OXYCODON-ACETA1 EAC2 PO; +SERTRALINE HCL100 MG PO; +SIMBRINZA 1%-0.28 ML OU
[2018-08-14] MEDS ORDERED: LASIX20 MG PO (19:10)
[2018-08-14] MEDS ORDERED: K-TAB ER20 MEQ PO (19:10)
== END 2018-08-14 19:33 | disposition home or self-care (01) ==
LOC: ED 16:16
DX: R51 Headache (principal); R20.2 Paresthesia of skin; M79.89 Other specified soft tissue disorders; Z87.891 Personal history of nicotine dependence; Z88.0 Allergy status to penicillin; Z88.5 Allergy status to narcotic agent; Z79.899 Other long term (current) drug therapy; Z79.82 Long term (current) use of aspirin
CPT/HCPCS: 70450; 80053; 83880; 85025; 99284-25

== ENCOUNTER 2021-10-28 08:36 | Day surgery (SDC) | payer MEDICARE, OTHER ==
[~2021-10-28] VITALS: Wt 81.9 kg
[~2021-10-28 08:36] MED LIST changes: +AZOPT10 ML OD; +K-TAB ER20 MEQ PO; +LASIX20 MG PO; +LATANOPROST2.5 ML OPTH; +PREDNISOLONE ACE5 M1 OP; +TIMOLOL MALEATE5 M4
--- NOTE | 2021-10-28 10:58 | NUR ---
10/28/21 1058 Jackeline Jackson 1051- PT ARRIVES TO PACU AWAKE AND TALKING. PT REPORTS NO PAIN OR NAUSEA. RESP EVEN AND UNLABORED. OXYGEN SAT HIGH 90'S TO 100% ON 3L VIA OXYMASK. PT DROWSY AND FALLS TO SLEEP WHEN NOT BEING STIMULATED. 1055- PT PASSING FLATUS. 1057- OXYGEN TITRATED OFF.
--- NOTE | 2021-10-29 08:08 | OR ---
[facility] [address] [place], [place] [address] Signed DATE OF OPERATION: 10/28/2021 SURGEON: Galen Jack MD PREOPERATIVE DIAGNOSES: 1. Mother with colon cancer at age 71. 2. Unremarkable colonoscopy in 2007 at age 57. 3. Elevated transaminase levels. POSTOPERATIVE DIAGNOSES: 1. 10 mm polyp at 30 cm (snare), lost in colon. 2. 5 mm sessile polyp at 45 cm. 3. 4 mm polyp at 105 cm. 4. 120 cm polyp at 120 cm (transverse colon, snare). 5. 4 mm polyp at 95 cm. 6. 4 mm polyp at 90 cm. 7. 7 mm sessile polyp at 85 cm. 8. 4 mm polyps at 75, 60 and 28 cm. 9. Minimal sigmoid diverticulosis. PROCEDURES: Colonoscopy, snare polypectomy x2 and hot biopsies. ESTIMATED BLOOD LOSS: None. INDICATIONS: Kiara is a 71-year-old female, who I have asked to see me for followup colonoscopy. Her mother was diagnosed with colon cancer at age 71. Her mother of the colon cancer at age 74. I helped Kiara with an unremarkable colonoscopy back in 2007 at the age of 57. More recently, she has elevated liver transaminase levels. Her primary care provider has been working with her in this regard. She had been asked to see me for followup colonoscopy by her primary care provider. We had asked her to follow up in 5 years. She returns now 14 years later. In the office, I gave her a pamphlet on colonoscopy. We reviewed the nature of that test. There is risk including, but not limited to gas bloating, crampy abdominal pain, bleeding, perforation requiring surgery, and missed diagnosis. We also reviewed the need for IV conscious sedation. She had expressed understanding and wished to proceed. DESCRIPTION OF PROCEDURE: Electronically Signed By: GALEN JACK MD 10/29/21 0808 PATIENT NAME: KIARA HODGSON OPERATIVE REPORT DATE OF : 54 REPORT #: [id number] PHYSICIAN: GALEN JACK MD PCP: PELON STAHL MD REPORT IS CONFIDENTIAL AND NOT TO BE RELEASED WITHOUT AUTHORIZATION [facility] [address] [place], [place] [address] Signed Kiara was taken into our endoscopy suite and placed in the left lateral decubitus position. She was given a total of 6 mg of Versed and 100 mcg of fentanyl to cover the case. A digital rectal exam was performed and this was unremarkable. She had good sphincter tone. The adult colonoscope was then introduced and advanced out into the cecum under direct visualization of camera without difficulty. Her prep was quite excellent. We could easily see the appendiceal orifice and the ileocecal valve. The scope was then slowly withdrawn. We took pictures throughout for photodocumentation. We used our snare at 120 cm in the transverse colon as well as back at 30 cm in her sigmoid colon. Unfortunately, we lost that polyp back at 30 cm. The other polyps were removed with the help of hot biopsy forceps. She has just a little bit of diverticula in her sigmoid colon. They were quite small and few in number, and scattered about. The scope was then retroflexed in the rectum and there was no additional pathology noted above the anal canal. After this, the gas was suctioned out and the colonoscope removed. Kiara tolerated the procedure quite well. RECOMMENDATIONS: I will see Kiara back in my office in 7 to 14 days to review her results. Galen Jack MD ALB/MODL /[id number] cc: Patient Chart MD Galen Stearns MD Copies: PELON STAHL MD, ANDREW L MD ~ Electronically Signed By: GALEN JACK MD 10/29/21 0808 PATIENT NAME: KIARA HODGSON TEZ OPERATIVE REPORT DATE OF : 54 REPORT #: [id number] PHYSICIAN: GALEN JACK MD PCP: PELON STAHL MD REPORT IS CONFIDENTIAL AND NOT TO BE RELEASED WITHOUT AUTHORIZATION
--- NOTE | 2021-10-29 16:38 | PATH ---
[facility] [address] [facility] [place] [place] [address] Signed SPECIMEN(S): A SIGMOID POLYP AT 30 CM SPECIMEN(S): B POLYP AT 45 CM SPECIMEN(S): C POLYP AT 105 CM SPECIMEN(S): D TRANSVERSE POLYP AT 120 CM SPECIMEN(S): E POLYP AT 95 CM SPECIMEN(S): F POLYP AT 90 CM SPECIMEN(S): G POLYP AT 85 CM SPECIMEN(S): H POLYP AT 75 CM SPECIMEN(S): I POLYP AT 60 CM SPECIMEN(S): J POLYP AT 28 CM SPECIMEN SOURCE: A. SIGMOID POLYP AT 30 CM B. POLYP AT 45 CM C. POLYP AT 105 CM D. TRANSVERSE POLYP AT 120 CM E. POLYP AT 95 CM F. POLYP AT 90 CM G. POLYP AT 85 CM H. POLYP AT 75 CM I. POLYP AT 60 CM J. POLYP AT 28 CM CLINICAL HISTORY: 2008 normal colonoscopy; family history of colon CA. FINAL PATHOLOGIC DIAGNOSIS: A. Colon, sigmoid, polyp at 30 cm, polypectomy: - Tubular adenoma. - Negative for high-grade dysplasia or malignancy. B. Colon, polyp at 45 cm, polypectomy: - Fragments of tubular adenoma. - Negative for high-grade dysplasia or malignancy. C. Colon, polyp at 105 cm, polypectomy: - Cauterized colonic mucosa with no identified histopathologic abnormality, see Comment. - Negative for high-grade dysplasia or malignancy. D. Colon, transverse polyp at 120 cm, polypectomy: - Tubular adenoma. - Negative for high-grade dysplasia or malignancy. E. Colon, polyp at 95 cm, polypectomy: PATIENT NAME: KIARA HODGSON PATHOLOGY DATE OF : 54 REPORT #: [id number] PHYSICIAN: CARSON MACIAS PCP: PELON STAHL MD REPORT IS CONFIDENTIAL AND NOT TO BE RELEASED WITHOUT AUTHORIZATION [facility] [address] [place], [place] [address] Signed - Tubular adenoma. - Negative for high-grade dysplasia or malignancy. F. Colon, polyp at 90 cm, polypectomy: - Tubular adenoma. - Negative for high-grade dysplasia or malignancy. G. Colon, polyp at 85 cm, polypectomy: - Tubular adenoma. - Negative for high-grade dysplasia or malignancy. H. Colon, polyp at 75 cm, polypectomy: - Cauterized colonic mucosa with no identified histopathologic abnormality, see Comment. - Negative for high-grade dysplasia or malignancy. I. Colon, polyp at 60 cm, polypectomy: - Fragments of tubular adenoma. - Negative for high-grade dysplasia or malignancy. J. Colon, polyp at 28 cm, polypectomy: - Tubular adenoma. - Negative for high-grade dysplasia or malignancy. COMMENT: Regarding specimens C and H: Multiple additional deeper levels were examined. The cautery artifact limits histologic interpretation. NAL:cml:[id number] MICROSCOPIC EXAMINATION: Histologic sections of all submitted blocks are examined by light microscopy. These findings, together with the gross examination, support the pathologic diagnosis. GROSS DESCRIPTION: Ten specimens are received in ten containers, labeled "MW." A. The specimen, labeled "MW, sigmoid colon polyp at 30 cm," is received in formalin and consists of one mccartney soft tissue fragment that measures 0.2 cm in greatest dimension. The specimen is entirely submitted in cassette (A1). B. The specimen, labeled "MW, colon polyp at 45 cm," is received in formalin and consists of multiple mccartney soft tissue fragments that measure 1.6 x 1.4 x 0.2 cm in aggregate. The specimen is entirely submitted in cassette (B1). C. The specimen, labeled "MW, colon polyp at 105 cm," is received in formalin and consists of two mccartney soft tissue fragments that measure 0.1 cm in greatest PATIENT NAME: KIARA HODGSON PATHOLOGY DATE OF : 54 REPORT #: [id number] PHYSICIAN: CARSON MACIAS PCP: PELON STAHL MD REPORT IS CONFIDENTIAL AND NOT TO BE RELEASED WITHOUT AUTHORIZATION [facility] [address] [place], [place] [address] Signed dimension. The specimen is entirely submitted in cassette (C1). D. The specimen, labeled "MW, colon polyp at 120 cm," is received in formalin and consists of two mccartney soft tissue fragments that measure 0.1-0.2 cm in greatest dimension. The specimen is entirely submitted in cassette (D1). E. The specimen, labeled "MW, colon polyp at 95 cm," is received in formalin and consists of three mccartney soft tissue fragments that measure 0.2 cm in greatest dimension. The specimen is entirely submitted in cassette (E1). F. The specimen, labeled "MW, colon polyp at 90 cm," is received in formalin and consists of one mccartney soft tissue fragment that measures 0.2 cm in greatest dimension. The specimen is entirely submitted in cassette (F1). G. The specimen, labeled "MW, colon polyp at 85 cm," is received in formalin and consists of one mccartney soft tissue fragment that measures 0.1 cm in greatest dimension. The specimen is entirely submitted in cassette (G1). H. The specimen, labeled "MW, colon polyp at 75 cm," is received in formalin and consists of one mccartney soft tissue fragment that measures 0.1 cm in greatest dimension. The specimen is entirely submitted in cassette (H1). I. The specimen, labeled "MW, colon polyp at 60 cm," is received in formalin and consists of three mccartney soft tissue fragments that measure 0.1 cm in greatest dimension. The specimen is entirely submitted in cassette (I1). J. The specimen, labeled "MW, colon polyp at 28 cm," is received in formalin and consists of two mccartney soft tissue fragments that measure 0.1-0.2 cm in greatest dimension. The specimen is entirely submitted in cassette (J1). JS (under the direct supervision of a pathologist) The Gross Description was prepared using a voice recognition system. The report was reviewed for accuracy; however, sound-alike word errors, addition and/or deletions may occur. If there is any question about this report, please contact Client Services. PERFORMING LABORATORY: The technical component was performed by [facility], [address] [place] [id number] (CLIA# [id number]). Professional interpretation was performed by [facility] PATIENT NAME: KIARA HODGSON TEZ PATHOLOGY DATE OF : 54 REPORT #: [id number] PHYSICIAN: CARSON MACIAS PCP: PELON STAHL MD REPORT IS CONFIDENTIAL AND NOT TO BE RELEASED WITHOUT AUTHORIZATION [facility] [address] [place], [place] [address] Signed [facility], [address] [address] (CLIA# [id number]). Diagnostician: Светлана Ortiz MD Pathologist Electronically Signed 10/29/2021 Copies: ~ PATIENT NAME: DOUGLAS GONSALESMOLINAKIARA Carbajal PATHOLOGY DATE OF : 54 REPORT #: [id number] PHYSICIAN: CARSON PATHOLOGY PCP: PELON STAHL MD REPORT IS CONFIDENTIAL AND NOT TO BE RELEASED WITHOUT AUTHORIZATION
== END 2021-10-28 13:15 | disposition home or self-care (01) ==
LOC: OPS 08:36 → DS 08:40 → OPS 09:45
PROVIDERS: ATTEND Colon & Rectal Surgery
PROC: 0DBL8ZX Excision of Transverse Colon, Via Natural or Artificial Opening Endoscopic, Diagnostic (ICD-10-PCS; 2021-10-28)
PROC: 0DBN8ZX Excision of Sigmoid Colon, Via Natural or Artificial Opening Endoscopic, Diagnostic (ICD-10-PCS; principal; 2021-10-28 09:45)
DX: Z12.11 Encounter for screening for malignant neoplasm of colon (principal); Z80.0 Family history of malignant neoplasm of digestive organs; D12.5 Benign neoplasm of sigmoid colon; D12.3 Benign neoplasm of transverse colon; K63.5 Polyp of colon; R74.01 Elevation of levels of liver transaminase levels; K57.30 Diverticulosis of large intestine without perforation or abscess without bleeding; E78.5 Hyperlipidemia, unspecified; G47.33 Obstructive sleep apnea (adult) (pediatric); E06.3 Autoimmune thyroiditis; E11.9 Type 2 diabetes mellitus without complications; Z88.2 Allergy status to sulfonamides; Z88.5 Allergy status to narcotic agent
CPT/HCPCS: 99153; G0500; J1610; J2250; J3010; J7121